=== PATIENT | female | born 1970 | race Caucasian/White ===

== ENCOUNTER 2018-11-16 20:23 | Emergency (ER) | payer OTHER ==
[~2018-11-16] VITALS: Ht 165.1 cm; Wt 79.4 kg
[2018-11-16] MEDS ORDERED: TRAMADOL HCL50 MG (20:32)
[2018-11-16] MEDS ORDERED: CEPHALEXIN500 MG (20:33)
[2018-11-16] MEDS ORDERED: ZOFRAN4 MG (20:33)
[2018-11-17] MEDS ORDERED: KETO10TA2 PO (06:06)
[2018-11-17] MEDS ORDERED: ZOFRAN ODT8 MG PO (06:06)
== END 2018-11-17 06:48 | disposition home or self-care (01) ==
LOC: ER 20:23
DX: E86.0 Dehydration (principal); R11.2 Nausea with vomiting, unspecified; T40.4X5A Adverse effect of other synthetic narcotics, initial encounter; Y92.89 Other specified places as the place of occurrence of the external cause